=== PATIENT | female | born 1995 | race Caucasian/White ===

== ENCOUNTER 2020-04-22 02:34 | Emergency (ER) | payer BC ==
[~2020-04-22] VITALS: Ht 152.4 cm; Wt 81.8 kg
[2020-04-22 02:52] VITALS: TEMP 97.9
[2020-04-22 03:05] LABS: COLLECTION METHOD CLEAN CATCH
[2020-04-22 03:14] LABS: MUCOUS Present /lpf; PH 5 (5-8); URINE APPEARANCE Cloudy; URINE BACTERIA None Seen /hpf; URINE BILIRUBIN Negative (NEGATIVE); URINE BLOOD 3+ (NEGATIVE); URINE COLOR Yellow; URINE GLUCOSE Negative (NEGATIVE); URINE KETONE Negative (NEGATIVE); URINE LEUKOCYTE ESTERASE 1+ (NEGATIVE); URINE NITRATE Negative (NEGATIVE); URINE PROTEIN(semi-quant) 1+ (NEGATIVE); URINE RBC >50 /hpf; URINE UROBILINOGEN Negative (NEGATIVE)
[2020-04-22] MEDS ORDERED: MACROBID 1100 MG/CAP PO (03:21)
[2020-04-22] MEDS ORDERED: WELLBUTRIN 100100 MG PO (03:25)
[2020-04-22 03:35] VITALS: BP 132/88; PULSE 84
== END 2020-04-22 03:35 | disposition home or self-care (01) ==
LOC: COL.ER 02:34
PROVIDERS: Physician Assistant
DX: N30.91 Cystitis, unspecified with hematuria (principal); Z32.02 Encounter for pregnancy test, result negative; Z91.048 Other nonmedicinal substance allergy status